=== PATIENT | male | born 1990 | race Asian ===

== ENCOUNTER 2017-03-16 17:15 | Emergency (ER) | payer BC ==
[~2017-03-16] VITALS: Ht 172.7 cm; Wt 68.0 kg
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
[2017-03-16] MEDS ORDERED: IBUPROFEN600 MG ORAL (18:07)
[2017-03-16 18:15] VITALS: BP 121/71
== END 2017-03-16 18:15 | disposition home or self-care (01) ==
LOC: EMR 18:00
DX: S00.83XA Contusion of other part of head, initial encounter (principal); Y04.2XXA Assault by strike against or bumped into by another person, initial encounter; Y93.9 Activity, unspecified; Y99.9 Unspecified external cause status; F17.200 Nicotine dependence, unspecified, uncomplicated; R04.0 Epistaxis
CPT/HCPCS: 99283